=== PATIENT | male | born 1950 | race American Indian/Alaskan Native ===

== ENCOUNTER 2018-11-01 16:45 | Emergency (ER) | payer MEDICARE, MEDICAID ==
--- NOTE | 2018-11-01 17:00 | Emergency Department Report ---
ED General Adult HPI - General Chief complaint: Tube Replacement Stated complaint: PULLED OUT GTUBE Time Seen by Provider: 11/01/18 17:00 Source: patient, EMS Mode of arrival: Stretcher Limitations: Physical Limitation, Other - History of Present Illness Initial comments: Patient is a 68-year-old male with multiple medical comorbidities who presents from long-term for full G-tube. Patient pulled his G-tube earlier on today. Further history is limited due to patient being unable to speak. Severity scale (0 -10): 0 - Related Data Home Medications Medication Instructions Recorded Confirmed Last Taken Insulin Regular, Human 1 units SQ PRN PRN 06/21/15 06/21/15 06/20/15 Omeprazole 20 mg PO DAILY 06/21/15 06/21/15 06/20/15 Scopolamine 1.5 mg SUBDERMAL Q72HR 06/21/15 06/21/15 06/20/15 glipiZIDE [Glucotrol] 5 mg PO BIDDIAB 06/21/15 06/21/15 06/20/15 Previous Rx's Medication Instructions Recorded Last Taken Type Lansoprazole Solutab [Prevacid 30 mg FEEDTUBE QDAY #30 tab.rapdis 09/22/14 Unknown Rx Solutab] Simvastatin (Nf) [Zocor TAB] 20 mg PO QHS #30 tablet 09/22/14 Unknown Rx Aspirin [Aspirin TAB] 325 mg PO QDAY #30 tablet 10/10/14 Unknown Rx Allergies Allergy/AdvReac Type Severity Reaction Status Date / Time shellfish derived AdvReac Unknown Verified 09/10/14 16:32 ED Review of Systems ROS: Stated complaint: PULLED OUT GTUBE Other details as noted in HPI Comment: Unobtainable due to pts medical conditions ED Past Medical Hx - Past Medical History Hx Hypertension: Yes Hx CVA: Yes (X 2 01/2015 & 01/2014) Hx Diabetes: Yes Hx Seizures: Yes Hx Dementia: Yes Additional medical history: Unable to obtain all medical history - Surgical History Past Surgical History?: Yes Additional Surgical History: Abd Surgery - Social History Smoking Status: Unknown if ever smoked - Medications Home Medications: Home Medications Medication Instructions Recorded Confirmed Last Taken Type Lansoprazole Solutab [Prevacid 30 mg FEEDTUBE QDAY #30 tab.rapdis 09/22/14 06/21/15 Unknown Rx Solutab] Simvastatin (Nf) [Zocor TAB] 20 mg PO QHS #30 tablet 09/22/14 06/21/15 Unknown Rx Aspirin [Aspirin TAB] 325 mg PO QDAY #30 tablet 10/10/14 06/21/15 Unknown Rx Insulin Regular, Human 1 units SQ PRN PRN 06/21/15 06/21/15 06/20/15 History Omeprazole 20 mg PO DAILY 06/21/15 06/21/15 06/20/15 History Scopolamine 1.5 mg SUBDERMAL Q72HR 06/21/15 06/21/15 06/20/15 History glipiZIDE [Glucotrol] 5 mg PO BIDDIAB 06/21/15 06/21/15 06/20/15 History ED Physical Exam - General Limitations: Physical Limitation, Other General appearance: alert, in no apparent distress - Head Head exam: Present: atraumatic, normocephalic - Eye Eye exam: Present: normal appearance - ENT ENT exam: Present: mucous membranes moist - Neck Neck exam: Present: normal inspection - Respiratory Respiratory exam: Present: normal lung sounds bilaterally. Absent: respiratory distress - Cardiovascular Cardiovascular Exam: Present: regular rate, normal rhythm. Absent: systolic murmur, diastolic murmur, rubs, gallop - GI/Abdominal GI/Abdominal exam: Present: soft, normal bowel sounds, other (erythematous stoma ) - Rectal Rectal exam: Present: deferred - Extremities Exam Extremities exam: Present: normal inspection - Back Exam Back exam: Present: normal inspection - Neurological Exam Neurological exam: Present: alert, other (unable to speak) - Psychiatric Psychiatric exam: Present: other (unable to speak) - Skin Skin exam: Present: warm, dry, intact, normal color. Absent: rash ED Course Vital Signs 11/01/18 11/01/18 16:55 17:31 Temperature 98.7 F Pulse Rate 77 Respiratory 16 16 Rate Blood Pressure 107/70 [Right] O2 Sat by Pulse 98 Oximetry - Feeding Tube Replacement Reason for Replacement: pt. removed/pulled out Initial Tube Inserted: greater than 4 weeks Type of Tube: gastrostomy Use of Tube: medications and feeding Insertion Site Prior to Procedure: clean Tube Used for Reinsertion: other Armenian Tube Size (F): 22 Balloon Size (mls): 10 Verification of Placement: KUB Tube Secured by: G-tube attachment device Patient Tolerated Procedure: well ED Medical Decision Making - Radiology Data Radiology results: report reviewed, image reviewed Gastrotomy tube study: Shows gastrotomy tube tip in the stomach. - Medical Decision Making Cdx: pulled out g-tube ddx: stoma injury, malfunctioned g-tube I will replace g-tube and get radiologic imaging to confirm placement Critical care attestation.: If time is entered above; I have spent that time in minutes in the direct care of this critically ill patient, excluding procedure time. ED Disposition Clinical Impression: Gastrostomy tube dysfunction, Gastrojejunostomy tube dislodgement Disposition: - TO HOME OR SELFCARE Is pt being admited?: No Does the pt Need Aspirin: No Condition: Stable
--- NOTE | 2018-11-01 18:16 | XRay Report ---
FINAL REPORT EXAM: XR G-TUBE STUDY HISTORY: feeding tube placement TECHNIQUE: Supine AP views of the abdomen before and after injection of radiopaque contrast into a G -tube PRIORS: None. FINDINGS: The G-tube tip is in the mid stomach. After contrast injection the stomach and proximal to mid duoden um opacified. There is no contrast extravasation. The bowel gas pattern appears normal. There are dagoberto gical clips in the pelvis. There is advanced degenerative disc disease at L5-S1. IMPRESSION: The G-tube tip is in the stomach
[2018-11-01 19:18] VITALS: BP 107/71
== END 2018-11-01 20:13 | disposition home or self-care (01) ==
LOC: ED 16:45
DX: K94.23 Gastrostomy malfunction (principal); I10 Essential (primary) hypertension; E11.9 Type 2 diabetes mellitus without complications; Z79.4 Long term (current) use of insulin; Z91.013 Allergy to seafood
CPT/HCPCS: 43762; 74018; 99283; Q9963

== ENCOUNTER 2019-08-09 09:06 | Outpatient (CLI) | payer MEDICARE, MEDICAID ==
--- NOTE | 2019-08-09 11:55 | Fluoroscopy Report ---
MODIFIED BARIUM SWALLOW INDICATION: DYSPHAGIA TECHNIQUE: Swallowing was evaluated in the lateral position under direct fluoroscopy. FINDINGS: The patient was evaluated with thin liquids, puree and semisolid consistencies. The swallowing reflex was markedly delayed. There is poor clearing of the pharyngeal structures after swallowing. Vallecular and piriform sinus stasis was witnessed with thin liquids. No evidence for pe netration or aspiration. Please correlate with the formal report from speech therapy. IMPRESSION: Delayed swallowing reflex with poor clearing. Stasis. No penetration or aspiration was w itnessed. Fluoroscopic time: 2.6 minutes Number of fluoroscopic images: 1 Signer Name: Sergio Knott Jr, MD Signed: 08/09/2019 11:51 AM Workstation Name: [id number]
== END 2019-08-09 09:07 | disposition home or self-care (01) ==
LOC: PT 09:06
PROVIDERS: ATTEND Internal Medicine
DX: R13.10 Dysphagia, unspecified (principal); I10 Essential (primary) hypertension
CPT/HCPCS: 74230

== ENCOUNTER 2020-12-04 11:47 | Inpatient (IN) | payer MEDICARE ==
[2020-12-04] MEDS ORDERED: VANCOMYCIN/NS 1 GM/250 ML 1 GM/250 ML BAG IV ONE (14:06)
[2020-12-04] MEDS ORDERED: ACETAMINOPHEN 325 MG TAB PO PRN (14:10)
[2020-12-04] MEDS ORDERED: ONDANSETRON 4 MG/2 ML INJ IV PRN (14:10)
[2020-12-04] MEDS ORDERED: DEXTROSE 50% IN WATER (25GM) 50 ML SYRINGE IV PRN (14:15)
[2020-12-04] MEDS ORDERED: SCOPOLAMINE 1.5 MG SUBDERMAL SCH (14:15)
--- NOTE | 2020-12-04 14:15 | History and Physical Report ---
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 Patient is confused and is unable to provide detailed history. Patient history taken from EMS staff, ED staff as well as residential facility staff. As per staff the patient has experienced leaking from around his gastric tube site and is unable to receive feeding via his G-tube. EMS was notified and upon arrival the patient was found to have leaking from his G-tube. Patient transported to [facility] for further care and evaluation of the aforementioned symptoms. The patient was seen and evaluated in the emergency department. All lab and imaging studies reviewed. Patient found to have malfunctioning G-tube, complicated by abdominal wall cellulitis. Patient admitted to medical floor and initiated on IV antibiotic therapy. GI team consulted in ED. Patient is unable to provide history. Patient has positive gag reflex and is able to protect his airway without difficulty. Prior admission on 09/10/14 reviewed. All medication listed at time of admission has been reconciled. Advanced care planning conducted in ED. Past History Past Medical History: diabetes, stroke, other (See HPI) Past Surgical History: No surgical history, Other (Reviewed) Social history: single. denies: smoking, alcohol abuse, prescription drug abuse Family history: diabetes, hypertension Medications and Allergies Allergies Allergy/AdvReac Type Severity Reaction Status Date / Time shellfish derived AdvReac Unknown Verified 09/10/14 16:32 Home Medications Medication Instructions Recorded Confirmed Last Taken Type Lansoprazole Solutab [Prevacid 30 mg FEEDTUBE QDAY #30 tab.rapdis 09/22/14 06/21/15 Unknown Rx Solutab] Simvastatin (Nf) [Zocor TAB] 20 mg PO QHS #30 tablet 09/22/14 06/21/15 Unknown Rx Aspirin 325 mg PO QDAY #30 tablet 10/10/14 06/21/15 Unknown Rx Insulin Regular, Human 1 units SQ PRN PRN 06/21/15 06/21/15 06/20/15 History Omeprazole 20 mg PO DAILY 06/21/15 06/21/15 06/20/15 History Scopolamine 1.5 mg SUBDERMAL Q72HR 06/21/15 06/21/15 06/20/15 History glipiZIDE [Glucotrol] 5 mg PO BIDDIAB 06/21/15 06/21/15 06/20/15 History Active Meds: Active Medications Acetaminophen (Acetaminophen 325 Mg Tab) 650 mg PO Q4H PRN PRN Reason: Pain MILD(1-3)/Fever >100.5/HESTER Aspirin (Aspirin 325 Mg Tab) 325 mg PO QDAY DARLENE Vancomycin HCl (Vancomycin/Ns 1 Gm/250 Ml) 1 gm in 250 mls @ 167.007 mls/hr IV ONCE ONE; Protocol Stop: 12/04/20 15:35 Miscellaneous Medication (Omeprazole) 20 mg PO DAILY DARLENE Miscellaneous Medication (Scopolamine) 1.5 mg SUBDERMAL Q72HR DARLENE Miscellaneous Medication (Simvastatin) 20 mg PO QHS DARLENE Ondansetron HCl (Ondansetron 4 Mg/2 Ml Inj) 4 mg IV Q8H PRN PRN Reason: Nausea And Vomiting Sodium Chloride (Sodium Chloride 0.9% 10 Ml Flush Syringe) 10 ml IV BID DARLENE Sodium Chloride (Sodium Chloride 0.9% 10 Ml Flush Syringe) 10 ml IV PRN PRN PRN Reason: LINE FLUSH Review of Systems ROS unobtainable: due to mental status Exam - Constitutional General appearance: Present: mild distress - EENT Eyes: Present: PERRL ENT: hearing intact, clear oral mucosa - Neck Neck: Present: supple, normal ROM - Respiratory Respiratory effort: normal Respiratory: bilateral: CTA - Cardiovascular Heart Sounds: Present: S1 & S2. Absent: rub, click - Extremities Extremities: pulses symmetrical, No edema Peripheral Pulses: within normal limits - Abdominal General gastrointestinal: Present: soft, non-tender, non-distended, normal bowel sounds Male genitourinary: Present: normal - Integumentary Integumentary: Present: clear, warm, dry - Musculoskeletal Musculoskeletal: generalized weakness - Psychiatric Psychiatric: no appropriate mood/affect, no intact judgment & insight, no memory intact - Neurologic Neurologic: CNII-XII intact, moves all extremities Results - Labs CBC & Chem 7: 12/04/20 15:18 12/04/20 15:18 Assessment and Plan - Patient Problems (1) Abdominal wall cellulitis Current Visit: Yes Status: Acute Plan to address problem: CBC, CMP, IV antibiotic therapy, supportive care, wound care. (2) Gastrostomy tube dysfunction Current Visit: Yes Status: Acute Plan to address problem: Hold tube feeds for now, GI team consulted in ED. (3) Vascular dementia Current Visit: Yes Status: Acute Qualifiers: Dementia behavioral disturbance: without behavioral disturbance Qualified Code(s): F01.50 - Vascular dementia without behavioral disturbance Plan to address problem: Verbal prompting, verbal redirection, benzodiazepine therapy as clinically indicated. (4) Cerebral atherosclerosis Current Visit: Yes Status: Acute Plan to address problem: Risk factor reduction, supportive care, continue medical management (5) DVT prophylaxis Current Visit: No Status: Acute Plan to address problem: SCD to bilateral lower extremities while in bed, prophylactic anticoagulation (6) Advance care planning Current Visit: Yes Status: Acute Plan to address problem: Disease education conducted, patient is full code, care plan discussed, prognosis discussed, +30 minutes.
--- NOTE | 2020-12-04 14:15 | Emergency Department Report ---
ED General Adult HPI - General Chief complaint: Tube Replacement Stated complaint: CATH LEAKING Time Seen by Provider: 12/04/20 13:26 Source: EMS Mode of arrival: Stretcher Limitations: Other - History of Present Illness Initial comments: The patient presents to the emergency department from a local care home for an issue with his G-tube. Per EMS care home states that the patient is having leakage around the G-tube and is nonfunctional. The patient is aphasic and is not able to add to the history and physical. -: unknown Consistency: constant Improves with: none Worsens with: none Associated Symptoms: denies other symptoms Treatments Prior to Arrival: none - Related Data Home Medications Medication Instructions Recorded Confirmed Last Taken Insulin Regular, Human 1 units SQ PRN PRN 06/21/15 06/21/15 06/20/15 Omeprazole 20 mg PO DAILY 06/21/15 06/21/15 06/20/15 Scopolamine 1.5 mg SUBDERMAL Q72HR 06/21/15 06/21/15 06/20/15 glipiZIDE [Glucotrol] 5 mg PO BIDDIAB 06/21/15 06/21/15 06/20/15 Previous Rx's Medication Instructions Recorded Last Taken Type Lansoprazole Solutab [Prevacid 30 mg FEEDTUBE QDAY #30 tab.rapdis 09/22/14 Unknown Rx Solutab] Simvastatin (Nf) [Zocor TAB] 20 mg PO QHS #30 tablet 09/22/14 Unknown Rx Aspirin 325 mg PO QDAY #30 tablet 10/10/14 Unknown Rx Allergies Allergy/AdvReac Type Severity Reaction Status Date / Time shellfish derived AdvReac Unknown Verified 09/10/14 16:32 ED Review of Systems ROS: Stated complaint: CATH LEAKING Other details as noted in HPI Comment: aphasic ED Past Medical Hx - Past Medical History Hx Hypertension: Yes Hx CVA: Yes Hx Diabetes: No Hx Renal Disease: No Hx Arthritis: No Hx Seizures: No Hx Asthma: No Hx Dementia: Yes Additional medical history: Unable to obtain all medical history - Surgical History Hx Pacemaker: No Additional Surgical History: Abd Surgery - Social History Smoking Status: Unknown if ever smoked - Medications Home Medications: Home Medications Medication Instructions Recorded Confirmed Last Taken Type Lansoprazole Solutab [Prevacid 30 mg FEEDTUBE QDAY #30 tab.rapdis 09/22/14 06/21/15 Unknown Rx Solutab] Simvastatin (Nf) [Zocor TAB] 20 mg PO QHS #30 tablet 09/22/14 06/21/15 Unknown Rx Aspirin 325 mg PO QDAY #30 tablet 10/10/14 06/21/15 Unknown Rx Insulin Regular, Human 1 units SQ PRN PRN 06/21/15 06/21/15 06/20/15 History Omeprazole 20 mg PO DAILY 06/21/15 06/21/15 06/20/15 History Scopolamine 1.5 mg SUBDERMAL Q72HR 06/21/15 06/21/15 06/20/15 History glipiZIDE [Glucotrol] 5 mg PO BIDDIAB 06/21/15 06/21/15 06/20/15 History ED Physical Exam - General Limitations: Other General appearance: alert, in no apparent distress - Head Head exam: Present: atraumatic, normocephalic - Eye Eye exam: Present: normal appearance - ENT ENT exam: Present: mucous membranes moist - Neck Neck exam: Present: normal inspection - Respiratory Respiratory exam: Present: normal lung sounds bilaterally. Absent: respiratory distress - Cardiovascular Cardiovascular Exam: Present: regular rate, normal rhythm. Absent: systolic murmur, diastolic murmur, rubs, gallop - GI/Abdominal GI/Abdominal exam: Present: soft, tenderness (Patient has tenderness around the G-tube with obvious surrounding excoriation and soft tissue cellulitis), normal bowel sounds - Rectal Rectal exam: Present: deferred - Extremities Exam Extremities exam: Present: normal inspection - Back Exam Back exam: Present: normal inspection - Neurological Exam Neurological exam: Present: alert - Psychiatric Psychiatric exam: Present: normal affect, normal mood - Skin Skin exam: Present: warm, dry, intact, normal color. Absent: rash ED Medical Decision Making - Medical Decision Making IV Abx given Admitting physician will follow labs Critical care attestation.: If time is entered above; I have spent that time in minutes in the direct care of this critically ill patient, excluding procedure time. ED Disposition Clinical Impression: Gastrostomy tube dysfunction, Abdominal wall cellulitis Disposition: - TO HOME OR SELFCARE Is pt being admited?: Yes Does the pt Need Aspirin: No Condition: Fair Referrals: PRIMARY CARE,MD [Primary Care Provider] - 3-5 Days
[2020-12-04 15:49] LABS: Basophils % (Auto) 0.2 % (0.0-1.8); Eosinophils % (Auto) 0.3 % (0.0-4.3); Hematocrit 49.8 % (35.5-45.6); Hemoglobin 16.7 gm/dl (11.8-15.2); Lymphocytes # (Auto) 2.7 K/mm3 (1.2-5.4); Lymphocytes % (Auto) 27.9 % (13.4-35.0); Mean Corpuscular HGB Conc 34 % (32-34); Mean Corpuscular Volume 99 fl (84-94); Monocytes # (Auto) 0.8 K/mm3 (0.0-0.8); Monocytes % (Auto) 8.3 % (0.0-7.3); Platelet Count 133 K/mm3 (140-440); Red Blood Count 5.05 M/mm3 (3.65-5.03); Red Cell Distribution Width 14.5 % (13.2-15.2)
[2020-12-04 16:00] LABS: INR 1.05 (0.87-1.13)
[2020-12-04 16:01] LABS: Partial Thromboplastin Time 28.6 Sec. (24.2-36.6)
[2020-12-04 16:13] LABS: Alanine Aminotransferase 13 units/L (7-56); Albumin 4.1 g/dL (3.9-5); BUN/Creatinine Ratio 16; Blood Urea Nitrogen 13 mg/dL (9-20); Hemolysis Index 7
[2020-12-04] MEDS: INSULIN REGULAR, HUMAN 100 UNITS/1 ML SUB-Q SCH ×2 (17:00→23:37)
[2020-12-04] MEDS ORDERED: VANCOMYCIN PHARMACY TO DOSE IV SCH (18:00)
[2020-12-04] MEDS ORDERED: NON-FORMULARY EACH (Simvastatin 20 MG Tablet) PO SCH (21:00)
[2020-12-04] MEDS: PRAVASTATIN 40 MG TAB PO SCH (23:37)
[2020-12-04] MEDS ORDERED: SODIUM CHLORIDE 0.9% 1000 ML 1,000 ML IV SCH (23:45)
[2020-12-05] MEDS ORDERED: VANCOMYCIN/NS 1 GM/250 ML 1 GM/250 ML BAG IV SCH (02:00)
[2020-12-05] MEDS: INSULIN REGULAR, HUMAN 100 UNITS/1 ML SUB-Q SCH ×4 (05:32→21:37)
[2020-12-05] MEDS ORDERED: PANTOPRAZOLE 20 MG TAB PO SCH (08:00)
[2020-12-05] MEDS: ASPIRIN 325 MG TAB PO SCH (08:15)
[2020-12-05] MEDS ORDERED: NON-FORMULARY EACH (Omeprazole 20 MG) PO SCH (10:00)
--- NOTE | 2020-12-05 11:48 | Progress Note ---
Assessment and Plan Assessment and plan: abdominal wall cellulitis. Gastrostomy tube dysfunction Vascular dementia Cerebral atherosclerosis 12/05/2020. Await GI consultation for G-tube dysfunction. Continue IV antibiotics and follow-up cultures. Check CT scan of the abdomen to rule out abscess. ID consultation. History Interval history: No new issues overnight Hospitalist Physical - Constitutional Vitals: Temp Pulse Resp BP Pulse Ox 98.3 F 107 H 18 119/75 94 12/05/20 05:12 12/05/20 05:12 12/05/20 05:12 12/05/20 05:12 12/05/20 05:12 General appearance: Present: mild distress - EENT Eyes: Present: PERRL, EOM intact ENT: hearing intact, clear oral mucosa, dentition normal - Neck Neck: Present: supple, normal ROM - Respiratory Respiratory effort: normal Respiratory: bilateral: CTA - Cardiovascular Rhythm: regular Heart Sounds: Present: S1 & S2. Absent: gallop, rub - Extremities Extremities: no ischemia, No edema, Full ROM - Abdominal General gastrointestinal: soft, non-tender, non-distended, normal bowel sounds - Integumentary Integumentary: Present: clear, warm, dry - Neurologic Neurologic: CNII-XII intact, moves all extremities Results - Labs CBC & Chem 7: 12/04/20 15:18 12/04/20 15:18 Labs: Laboratory Last Values WBC 9.8 K/mm3 (4.5-11.0) 12/04/20 15:18 RBC 5.05 M/mm3 (3.65-5.03) H 12/04/20 15:18 Hgb 16.7 gm/dl (11.8-15.2) H 12/04/20 15:18 Hct 49.8 % (35.5-45.6) H 12/04/20 15:18 MCV 99 fl (84-94) H 12/04/20 15:18 MCH 33 pg (28-32) H 12/04/20 15:18 MCHC 34 % (32-34) 12/04/20 15:18 RDW 14.5 % (13.2-15.2) 12/04/20 15:18 Plt Count 133 K/mm3 (140-440) L 12/04/20 15:18 Lymph % (Auto) 27.9 % (13.4-35.0) 12/04/20 15:18 [place] % (Auto) 8.3 % (0.0-7.3) H 12/04/20 15:18 Eos % (Auto) 0.3 % (0.0-4.3) 12/04/20 15:18 Baso % (Auto) 0.2 % (0.0-1.8) 12/04/20 15:18 Lymph # (Auto) 2.7 K/mm3 (1.2-5.4) 12/04/20 15:18 [place] # (Auto) 0.8 K/mm3 (0.0-0.8) 12/04/20 15:18 Eos # (Auto) 0.0 K/mm3 (0.0-0.4) 12/04/20 15:18 Baso # (Auto) 0.0 K/mm3 (0.0-0.1) 12/04/20 15:18 Seg Neutrophils % 63.3 % (40.0-70.0) 12/04/20 15:18 Seg Neutrophils # 6.2 K/mm3 (1.8-7.7) 12/04/20 15:18 PT 13.6 Sec. (12.2-14.9) 12/04/20 15:18 INR 1.05 (0.87-1.13) 12/04/20 15:18 APTT 28.6 Sec. (24.2-36.6) 12/04/20 15:18 Sodium 145 mmol/L (137-145) 12/04/20 15:18 Potassium 4.5 mmol/L (3.6-5.0) 12/04/20 15:18 Chloride 100.4 mmol/L (98-107) 12/04/20 15:18 Carbon Dioxide 32 mmol/L (22-30) H 12/04/20 15:18 Anion Gap 17 mmol/L 12/04/20 15:18 BUN 13 mg/dL (9-20) 12/04/20 15:18 Creatinine 0.8 mg/dL (0.8-1.3) 12/04/20 15:18 Estimated GFR > 60 ml/min 12/04/20 15:18 BUN/Creatinine Ratio 16 % 12/04/20 15:18 Glucose 118 mg/dL (75-100) H 12/04/20 15:18 POC Glucose 115 mg/dL (70-105) H 12/05/20 08:41 Lactic Acid 1.80 mmol/L (0.7-2.0) 12/05/20 00:59 Calcium 11.0 mg/dL (8.4-10.2) H 12/04/20 15:18 Magnesium 2.00 mg/dL (1.7-2.3) 12/04/20 15:18 Total Bilirubin 0.80 mg/dL (0.1-1.2) 12/04/20 15:18 AST 23 units/L (5-40) 12/04/20 15:18 ALT 13 units/L (7-56) 12/04/20 15:18 Alkaline Phosphatase 123 units/L (35-129) 12/04/20 15:18 Total Protein 8.1 g/dL (6.3-8.2) 12/04/20 15:18 Albumin 4.1 g/dL (3.9-5) 12/04/20 15:18 Albumin/Globulin Ratio 1.0 % 12/04/20 15:18 Microbiology: Microbiology 12/04/20 15:24 Peripheral/Venous Blood Culture - Preliminary Culture in Progress 12/04/20 15:18 Peripheral/Venous Blood Culture - Preliminary Culture in Progress [place]/IV: Voiding Method Urinal Active Medications - Current Medications Current Medications: Generic Name Dose Route Start Last Admin Trade Name Freq PRN Reason Stop Dose Admin Acetaminophen 650 mg 12/04/20 14:10 Acetaminophen 325 Mg Tab PO Q4H PRN Pain MILD(1-3)/Fever >100.5/HESTER Aspirin 325 mg 12/05/20 08:00 12/05/20 08:15 Aspirin 325 Mg Tab PO Not Given QDAY DARLENE Dextrose 50 ml 12/04/20 14:15 Dextrose 50% In Water (25gm) 50 Ml Syringe IV Q30MIN PRN Hypoglycemia Protocol Sodium Chloride 1,000 mls @ 75 mls/hr 12/04/20 23:45 Nacl 0.9% 1000 Ml IV DIRECT DARLENE Vancomycin HCl 1 gm in 250 mls @ 166.667 mls/hr 12/05/20 18:00 Vancomycin/Ns 1 Gm/250 Ml IV Q12H [facility] Insulin Human Regular 0 units 12/04/20 15:00 12/05/20 10:57 Insulin Regular, Human 100 Units/1 Ml SUB-Q Not Given Q6H [facility] Protocol Ondansetron HCl 4 mg 12/04/20 14:10 Ondansetron 4 Mg/2 Ml Inj IV Q8H PRN Nausea And Vomiting Pantoprazole Sodium 20 mg 12/05/20 08:00 12/05/20 08:15 Pantoprazole 20 Mg Tab PO Not Given QDAY [facility] Pravastatin Sodium 40 mg 12/04/20 21:00 12/04/20 23:37 Pravastatin 40 Mg Tab PO Not Given QHS [facility] Scopolamine 1 each 12/07/20 10:00 Scopolamine Transdermal Patch 72 Hr TD Q3D DARLENE Sodium Chloride 10 ml 12/04/20 22:00 12/05/20 08:15 Sodium Chloride 0.9% 10 Ml Flush Syringe IV 10 ml BID DARLENE Administration Sodium Chloride 10 ml 12/04/20 14:10 Sodium Chloride 0.9% 10 Ml Flush Syringe IV PRN PRN LINE FLUSH Nutrition/Malnutrition Assess - Dietary Evaluation Nutrition/Malnutrition Findings: Nutrition Notes Start: 12/05/20 08:58 Freq: Status: Active Protocol: Document 12/05/20 08:59 AL (Rec: 12/05/20 09:11 AL [id number]) Co-Sign 12/05/20 08:59 LP Nutrition Notes Current Diagnosis Diabetes,Hypertension,Stroke Other Pertinent Diagnosis AMS, Cerebral atherosclerosis Current Diet NPO Labs/Tests Reviewed Pertinent Medications Reviewed Height 5 ft 9 in Weight 67 kg [place] Body Weight (kg) 72.72 BMI 21.8 Weight Status Appropriate Subjective/Other Information RN screen for hx difficulty chewing. Pt Gilberto score of 15 . Burn Absent Trauma Absent Difficulty In Chewing Current % PO Negligible Minimum of two criteria No physical signs of malnutrition #2 Nutrition Diagnosis Increased nutrient needs ( specify in comment below) Comments: Protein Etiology need for wound healing As Evidenced by Signs and Symptoms anterior abd wound #1 Nutrition Diagnosis Inadequate oral intake Etiology difficulty chewing As Evidenced by Signs and Symptoms pt has PEG placed Is patient on ventilator? No Is Patient Ambulatory and/or Out of Bed Yes REE-([facility]-ambulatory/OOB) [ 1846.494 [id number]] Calculation Used for Recommendations [facility] Additional Notes Protein: 83-100 g (1.25-1.5 g/ kg ABW) Fluid: 1 ml/kcal Nutrition Intervention Change Diet Order: TF Nutrition Support: Glucerna 1.2 at 65 ml/hr Flush 125 ml q4h Kcal 1,872 Protein (gm) 94 Fluid (mL) 1,255 Goal #1 Start TF when medically feasible Goal #2 Wound healing Anticipated Discharge Needs: Glucerna 1.2 at 65 ml/hr Flush 125 ml q4h Follow-Up By: 12/07/20 Additional Comments FU for TF consult
--- NOTE | 2020-12-05 13:30 | Consultation ---
History of Present Illness - Reason for Consult Consult date: 12/05/20 abdominal wall cellulitis Requesting physician: YEVGENIY OQUENDO - History of Present Illness The patient is a 70-year-old male with CVA, diabetes, vascular dementia, retirement resident was brought into the emergency room due to leakage around his gastric tube site. Upon evaluation in the ER, was noted to have cellulitis around the G-tube. Infectious diseases was consulted for additional evaluation. Patient is otherwise afebrile. Labs show no leukocytosis. Nonverbal, unable to provide history Review of Systems: Nonverbal, unable to provide history Past History Past Medical History: diabetes, stroke, other (See HPI) Past Surgical History: No surgical history, Other (Reviewed) Social history: single. denies: smoking, alcohol abuse, prescription drug abuse Family history: diabetes, hypertension Medications and Allergies Allergies Allergy/AdvReac Type Severity Reaction Status Date / Time shellfish derived AdvReac Unknown Verified 09/10/14 16:32 Home Medications Medication Instructions Recorded Confirmed Last Taken Type Lansoprazole Solutab [Prevacid 30 mg FEEDTUBE QDAY #30 tab.rapdis 09/22/14 06/21/15 Unknown Rx Solutab] Simvastatin (Nf) [Zocor TAB] 20 mg PO QHS #30 tablet 09/22/14 06/21/15 Unknown Rx Aspirin 325 mg PO QDAY #30 tablet 10/10/14 06/21/15 Unknown Rx Insulin Regular, Human 1 units SQ PRN PRN 06/21/15 06/21/15 06/20/15 History Omeprazole 20 mg PO DAILY 06/21/15 06/21/15 06/20/15 History Scopolamine 1.5 mg SUBDERMAL Q72HR 06/21/15 06/21/15 06/20/15 History glipiZIDE [Glucotrol] 5 mg PO BIDDIAB 06/21/15 06/21/15 06/20/15 History Active Meds: Active Medications Acetaminophen (Acetaminophen 325 Mg Tab) 650 mg PO Q4H PRN PRN Reason: Pain MILD(1-3)/Fever >100.5/HESTER Aspirin (Aspirin 325 Mg Tab) 325 mg PO QDAY [facility] Last Admin: 12/05/20 08:15 Dose: Not Given Documented by: Dextrose (Dextrose 50% In Water (25gm) 50 Ml Syringe) 50 ml IV Q30MIN PRN; Protocol PRN Reason: Hypoglycemia Sodium Chloride (Nacl 0.9% 1000 Ml) 1,000 mls @ 75 mls/hr IV DIRECT DARLENE Vancomycin HCl (Vancomycin/Ns 1 Gm/250 Ml) 1 gm in 250 mls @ 166.667 mls/hr IV Q12H [facility] Insulin Human Regular (Insulin Regular, Human 100 Units/1 Ml) 0 units SUB-Q Q6H [facility]; Protocol Last Admin: 12/05/20 10:57 Dose: Not Given Documented by: Ondansetron HCl (Ondansetron 4 Mg/2 Ml Inj) 4 mg IV Q8H PRN PRN Reason: Nausea And Vomiting Pantoprazole Sodium (Pantoprazole 20 Mg Tab) [address] [facility] Last Admin: 12/05/20 08:15 Dose: Not Given Documented by: Pravastatin Sodium (Pravastatin 40 Mg Tab) [address] [facility] Last Admin: 12/04/20 23:37 Dose: Not Given Documented by: Scopolamine (Scopolamine Transdermal Patch 72 Hr) [address] [facility] Sodium Chloride (Sodium Chloride 0.9% 10 Ml Flush Syringe) [address] [facility] Last Admin: 12/05/20 08:15 Dose: 10 ml Documented by: Sodium Chloride (Sodium Chloride 0.9% 10 Ml Flush Syringe) 10 ml IV PRN PRN PRN Reason: LINE FLUSH Physical Examination - Physical Exam Narrative exam: Physical Exam: Constitutional: Awake, nonverbal Head, Ears, Nose: Normocephalic, atraumatic. External ears, nose normal Eyes: Conjunctivae/corneas clear. No icterus. No ptosis. Neck: Supple, no meningeal signs Cardiovascular: S1, S2 normal. Respiratory: Good air entry, clear to auscultation bilaterally GI: Leakage from G-tube site, areas of maceration around it along with some cellulitis Musculoskeletal: No pedal edema, no cyanosis. Skin: No rash or abscess Hem/Lymphatic: No palpable cervical or supraclavicular nodes. No lymphangitis Psych: No agitation Neurological: Awake, nonverbal, exam limited - Constitutional Vitals: Vital Signs Temp Pulse Resp BP Pulse Ox 98.3 F 107 H 18 119/75 94 12/05/20 05:12 12/05/20 05:12 12/05/20 05:12 12/05/20 05:12 12/05/20 05:12 Temperature -Last 24 Hours Temperature 98.3 F Temperature 98.7 F Temperature 98.5 F Temperature 99.0 F Temperature 99.0 F Results - Labs CBC & Chem 7: 12/04/20 15:18 12/04/20 15:18 Labs: Abnormal lab results 12/04/20 12/04/20 12/04/20 Range/Units 15:18 15:18 15:18 RBC 5.05 H (3.65-5.03) M/mm3 Hgb 16.7 H (11.8-15.2) gm/dl Hct 49.8 H (35.5-45.6) % MCV 99 H (84-94) fl MCH 33 H (28-32) pg Plt Count 133 L (140-440) K/mm3 [place] % (Auto) 8.3 H (0.0-7.3) % Carbon Dioxide 32 H (22-30) mmol/L Glucose 118 H (75-100) mg/dL POC Glucose (70-105) mg/dL Lactic Acid 3.90 H* (0.7-2.0) mmol/L Calcium 11.0 H (8.4-10.2) mg/dL 12/04/20 12/05/20 12/05/20 Range/Units 16:58 05:13 08:41 RBC (3.65-5.03) M/mm3 Hgb (11.8-15.2) gm/dl Hct (35.5-45.6) % MCV (84-94) fl MCH (28-32) pg Plt Count (140-440) K/mm3 [place] % (Auto) (0.0-7.3) % Carbon Dioxide (22-30) mmol/L Glucose (75-100) mg/dL POC Glucose 109 H 107 H 115 H (70-105) mg/dL Lactic Acid (0.7-2.0) mmol/L Calcium (8.4-10.2) mg/dL Assessment and Plan Cultures: 12/04/2020 blood culture: In process A/P: 70-year-old male with CVA, diabetes, vascular dementia, retirement resident was brought into the emergency room due to leakage around his gastric tube site: #Abdominal wall cellulitis due to G-tube malfunction #Vascular dementia, G-tube dependent Recs: -Awaiting GI evaluation for G-tube dysfunction -Mainly seems like chemical cellulitis from gastric secretions. Needs wound care -Short course of empiric ceftriaxone, vancomycin and fluconazole x 3 days Riley Anaya MD, FACP [facility] O: [phone] F: [phone]
--- NOTE | 2020-12-05 13:53 | Cat Scan Report ---
CT ABDOMEN AND PELVIS WITHOUT IV CONTRAST INDICATION: PEG site infection/cellulitis. COMPARISON: None available. TECHNIQUE: All CT scans at this facility use dose modulation, automated exposure control, iterative reconstructi on or weight based dosing, when appropriate, to reduce radiation dose to as low as reasonably achieva ble. FINDINGS: Lung Bases: Lung bases are clear. There appears to be a 2.6 cm left ventricular aneurysm at the apex (axial series 2 image 39). Skeletal System: No acute abnormality. Chronic mild T12 and T7 compression deformities are noted. Th ere is advanced discogenic degenerative change at the lumbosacral junction. ABDOMEN: Liver: No significant abnormality. Gallbladder: No significant abnormality. Bile Ducts: No significant abnormality. Pancreas: No significant abnormality. Spleen: Removed. Adrenals: No significant abnormality. Right Kidney: There is a punctate nonobstructing calyceal stone. Exophytic upper pole cyst is noted. No acute finding. Left Kidney: No significant abnormality. Upper GI tract: Gastrostomy is in satisfactory position. There is mild stranding and skin thickening in the anterior abdominal wall adjacent to the gastrostomy tract. No soft tissue fluid collections. Lymph Nodes: No significant adenopathy. Aorta: No significant abnormality. Additional Findings: In addition to midline rectus diastases of the umbilicus, there is a very small umbilical hernia which contains a single loop of small bowel (sagittal image 79). PELVIS: Colon: No acute abnormality. Sigmoid anastomosis is noted. Urinary Bladder and Distal Ureters: No significant abnormality. Appendix: No significant abnormality. Lymph Nodes: No significant adenopathy. Additional Findings: None. IMPRESSION: 1. There is mild stranding subcutaneous fat adjacent to the percutaneous gastrostomy catheter which could be seen in the setting of cellulitis; no abscess, free fluid, or free air. 2. 2.6 cm left ventricular aneurysm. Could be better characterized with echocardiography. 3. Additional incidental findings as above. Signer Name: Gilson Mcclure MD Signed: 12/05/2020 1:48 PM Workstation Name: [id number]
[2020-12-05] MEDS: FLUCONAZOLE 200 MG 200 MG/100 ML BAG IV SCH (14:18)
[2020-12-05] MEDS: cefTRIAXone/NS 1 GM/50 ML 1 GM/50 ML BAG IV SCH (14:18)
[2020-12-05] MEDS: PANTOPRAZOLE 40 MG INJ IV SCH (14:52)
--- NOTE | 2020-12-05 15:33 | Consultation ---
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 He has been seen by our practice on a prior admission in 2013, no OP follow-up. He is nonverbal, unable to provide HPI, and thus HPI is obtained per the chart. Pt was brought into the emergency room due to leakage around his gastric tube site and subsequently found to have cellulitis around the tube. Pt was noted to have 5 beat run NSVT this morning and thus cardiology has been consulted. tte done at [facility] in 09/2014 showed EF 15-20%, mild MR, impaired relaxation. Past History Past Medical History: diabetes, stroke, other (See HPI) Past Surgical History: No surgical history, Other (Reviewed) Social history: single. denies: smoking, alcohol abuse, prescription drug abuse Family history: diabetes, hypertension Medications and Allergies Allergies Allergy/AdvReac Type Severity Reaction Status Date / Time shellfish derived AdvReac Unknown Verified 09/10/14 16:32 Home Medications Medication Instructions Recorded Confirmed Last Taken Type Lansoprazole Solutab [Prevacid 30 mg FEEDTUBE QDAY #30 tab.rapdis 09/22/14 06/21/15 Unknown Rx Solutab] Simvastatin (Nf) [Zocor TAB] 20 mg PO QHS #30 tablet 09/22/14 06/21/15 Unknown Rx Aspirin 325 mg PO QDAY #30 tablet 10/10/14 06/21/15 Unknown Rx Insulin Regular, Human 1 units SQ PRN PRN 06/21/15 06/21/15 06/20/15 History Omeprazole 20 mg PO DAILY 06/21/15 06/21/15 06/20/15 History Scopolamine 1.5 mg SUBDERMAL Q72HR 06/21/15 06/21/15 06/20/15 History glipiZIDE [Glucotrol] 5 mg PO BIDDIAB 06/21/15 06/21/15 06/20/15 History Active Meds: Active Medications Acetaminophen (Acetaminophen 325 Mg Tab) 650 mg PO Q4H PRN PRN Reason: Pain MILD(1-3)/Fever >100.5/[facility] Aspirin (Aspirin 325 Mg Tab) 325 mg PO QDAY [facility] Last Admin: 12/05/20 08:15 Dose: Not Given Documented by: Dextrose (Dextrose 50% In Water (25gm) 50 Ml Syringe) 50 ml IV Q30MIN PRN; Protocol PRN Reason: Hypoglycemia Sodium Chloride (Nacl 0.9% 1000 Ml) 1,000 mls @ 75 mls/hr IV DIRECT D[facility]LENE Vancomycin HCl (Vancomycin/Ns 1 Gm/250 Ml) 1 gm in 250 mls @ 166.667 mls/hr IV Q12H [facility] Ceftriaxone Sodium (Rocephin/Ns 1 Gm/50 Ml) 1 gm in 50 mls @ 100 mls/hr IV Q24HR [facility]; Protocol Last Admin: 12/05/20 14:18 Dose: 100 mls/hr Documented by: Fluconazole (Diflucan) 200 mg in 100 mls @ 100 mls/hr IV Q24HR [facility]; Protocol Last Admin: 12/05/20 14:18 Dose: 100 mls/hr Documented by: Insulin Human Regular (Insulin Regular, Human 100 Units/1 Ml) 0 units SUB-Q Q6H [facility]; Protocol Last Admin: 12/05/20 10:57 Dose: Not Given Documented by: Ondansetron HCl (Ondansetron 4 Mg/2 Ml Inj) 4 mg IV Q8H PRN PRN Reason: Nausea And Vomiting Pantoprazole Sodium (Pantoprazole 40 Mg Inj) 40 mg IV QDAY [facility] Last Admin: 12/05/20 14:52 Dose: 40 mg Documented by: Pravastatin Sodium (Pravastatin 40 Mg Tab) 40 mg PO QHS [facility] Last Admin: 12/04/20 23:37 Dose: Not Given Documented by: Scopolamine (Scopolamine Transdermal Patch 72 Hr) 1 each TD Q3D [facility] Sodium Chloride (Sodium Chloride 0.9% 10 Ml Flush Syringe) 10 ml IV BID [facility] Last Admin: 12/05/20 08:15 Dose: 10 ml Documented by: Sodium Chloride (Sodium Chloride 0.9% 10 Ml Flush Syringe) 10 ml IV PRN PRN PRN Reason: LINE FLUSH Review of Systems ROS unobtainable: due to mental status Physical Examination Vital Signs Resp 17 12/04/20 15:26 General appearance: other (nonverbal) Cardiac: Positive: Reg Rate and Rhythm, S1/S2 Lungs: Positive: Decreased Breath Sounds Neuro: Positive: Other (nonverbal) Results 12/04/20 15:18 12/04/20 15:18 Cardiac Enzymes 12/04/20 Range/Units 15:18 AST 23 (5-40) units/L Coagulation 12/04/20 Range/Units 15:18 PT 13.6 (12.2-14.9) Sec. INR 1.05 (0.87-1.13) APTT 28.6 (24.2-36.6) Sec. CBC 12/04/20 Range/Units 15:18 WBC 9.8 (4.5-11.0) K/mm3 RBC 5.05 H (3.65-5.03) M/mm3 Hgb 16.7 H (11.8-15.2) gm/dl Hct 49.8 H (35.5-45.6) % Plt Count 133 L (140-440) K/mm3 Lymph # (Auto) 2.7 (1.2-5.4) K/mm3 [place] # (Auto) 0.8 (0.0-0.8) K/mm3 Eos # (Auto) 0.0 (0.0-0.4) K/mm3 Baso # (Auto) 0.0 (0.0-0.1) K/mm3 Comprehensive Metabolic Panel 12/04/20 Range/Units 15:18 Sodium 145 (137-145) mmol/L Potassium 4.5 (3.6-5.0) mmol/L Chloride 100.4 (98-107) mmol/L Carbon Dioxide 32 H (22-30) mmol/L BUN 13 (9-20) mg/dL Creatinine 0.8 (0.8-1.3) mg/dL Glucose 118 H (75-100) mg/dL Calcium 11.0 H (8.4-10.2) mg/dL AST 23 (5-40) units/L ALT 13 (7-56) units/L Alkaline Phosphatase 123 (35-129) units/L Total Protein 8.1 (6.3-8.2) g/dL Albumin 4.1 (3.9-5) g/dL - Imaging and Cardiology Echo: pending, report reviewed (09/2014 showed EF 15-20%, mild MR, impaired relaxation. ) EKG: pending EKG interpretations - Telemetry EKG Rhythm: Sinus Rhythm Assessment and Plan Pt is nonverbal group home resident admitted for eval/management of cellulitis around G-tube. He was noted to have 5 beat run NSVT this morning and thus cardiology has been consulted. tte done at [facility] in 09/2014 showed EF 15-20%, mi ld MR, impaired relaxation. Initiate lopressor. Obtain ECG and f/u tte. Cont to monitor on telemetry. Will likely continue with conservative cardiac management given dementia , chronic debility and multiple co-morbidities. Will follow. The patient has been seen in conjunction with Dr. Szymanski who agrees with the assessment and plan of care. - Patient Problems (1) Abdominal wall cellulitis Current Visit: Yes Status: Acute (2) Gastrostomy tube dysfunction Current Visit: Yes Status: Acute (3) NSVT (nonsustained ventricular tachycardia) Current Visit: Yes Status: Acute (4) Cardiomyopathy Current Visit: Yes Status: Chronic (5) Vascular dementia Current Visit: Yes Status: Chronic Qualifiers: Dementia behavioral disturbance: without behavioral disturbance Qualified Code(s): F01.50 - Vascular dementia without behavioral disturbance (6) HTN (hypertension), benign Current Visit: Yes Status: Chronic (7) Diabetes Current Visit: Yes Status: Chronic (8) History of CVA (cerebrovascular accident) Current Visit: Yes Status: Chronic
[2020-12-05] MEDS ORDERED: metFORMIN 850 MG TAB PO SCH (17:00)
[2020-12-05] MEDS: VANCOMYCIN/NS 1 GM/250 ML 1 GM/250 ML BAG IV SCH (18:17)
[2020-12-05] MEDS: METOPROLOL TARTRATE 25 MG TAB PO SCH (21:33)
[2020-12-05] MEDS: PRAVASTATIN 40 MG TAB PO SCH (21:37)
[2020-12-05] MEDS ORDERED: ALPRAZolam 0.5 MG TAB PO ONE (22:30)
--- NOTE | 2020-12-06 04:41 | Operative Report ---
PROCEDURE: PEG tube change. INDICATION: 1. Malfunctioning PEG tube. 2. Cellulitis. MEDICATIONS: None. COMPLICATIONS: None. DESCRIPTION OF PROCEDURE: The patient had procedure done at bedside. The patient had the procedure discussed with family after which consent to move along was given. The patient was done in supine position. No medications were administered. No complications noted. FINDINGS: There was a dilapidated PEG tube that was for the most part not functioning; needed to be removed. Bumper was very dilapidated. With mild to moderate pressure the PEG tube was moved with the bumper noted. Area was then cleaned and sterilized with Betadine. Using standard technique an 18-Tajik balloon replacement PEG was then placed. Bumper was noted to be at 2.5 cm. Post-procedure appearance was satisfactory. No complications noted. IMPRESSION: 1. Old PEG noted and removed. 2. Area clean. 3. New 18-Tajik replacement PEG placed. RECOMMENDATIONS: 1. Continue current antibiotics. 2. Do not use PEG for 6 hours. 3. Nutrition consult. 4. We will follow up in a.m. JOB# [id number] CAB/NTS
--- NOTE | 2020-12-06 05:09 | Consultation ---
INDICATION: PEG tube malfunction. REFERRING PHYSICIAN: Ronny Torres MD HISTORY OF PRESENT ILLNESS: The patient is a 70-year-old male status post CVA with dysarthria and vascular dementia as well as diabetes. The patient is confused, unable to give full history. The patient was sent from the nursing facility with G-tube malfunction with the G-tube leaking with noted pustular drainage. The patient reportedly with no fevers or chills. The patient does vaguely report some abdominal pain by pointing. He denies any bowel changes including diarrhea, constipation or rectal bleeding. The patient subsequently was seen in the Emergency Room, admitted and GI consulted. No other specific complaints. PAST MEDICAL HISTORY: TPN with diabetes. MEDICATIONS: Reviewed and updated in chart. ALLERGIES: No known drug allergies. SOCIAL HISTORY: No history of alcohol abuse or smoking. Lives in a mcc. FAMILY HISTORY: Negative for colon cancer. REVIEW OF SYSTEMS: GENERAL: Some weakness. HEENT: No visual complaints or tinnitus. PULMONARY: Denies shortness of breath. No cough. No chest pain. GASTROINTESTINAL: Reports some abdominal discomfort at the G-tube site. All points of 13-point review of systems otherwise negative. PHYSICAL EXAMINATION: VITAL SIGNS: Temperature of 98.1, pulse 90, respirations 16, blood pressure 117/60. GENERAL: Somewhat nourished with no acute distress. HEENT: Pupils equal, round, and reactive. PULMONARY: Clear to auscultation bilaterally. CARDIOVASCULAR: Regular rhythm. Normal S1, S2. ABDOMEN: Palpable soft. Noted inflammation, mild pain from old PEG tube and PEG tube site. SKIN: No obvious rashes. LABORATORY DATA: Pertinent for a white count of 9.8, hemoglobin and hematocrit of 16.7 and 49.8, platelet count of 133. Chem-[address] scan of the abdomen and pelvis with contrast performed on 12/05/2020 shows subcutaneous fat stranding around G-tube site, cellulitis, otherwise negative. ASSESSMENT: A 70-year-old male status post CVA and diabetes, now presents with a malfunctioning G-tube with drainage and signs of cellulitis. PEG tube would need to be removed and replaced but we will go for IV antibiotics overnight to stabilize better and perform in the morning. PLAN: 1. On IV antibiotics per primary team. 2. N.p.o. 3. Avoid NSAIDs and aspirin. 4. Plan PEG tube change in the a.m. JOB# [id number] CAB/NTS
[2020-12-06] MEDS: INSULIN REGULAR, HUMAN 100 UNITS/1 ML SUB-Q SCH ×4 (05:16→22:33)
[2020-12-06] MEDS: VANCOMYCIN/NS 1 GM/250 ML 1 GM/250 ML BAG IV SCH ×2 (05:26→17:52)
[2020-12-06 06:00] LABS: Basophils % (Auto) 0.3 % (0.0-1.8); Eosinophils # (Auto) 0.1 K/mm3 (0.0-0.4); Eosinophils % (Auto) 0.7 % (0.0-4.3); Hematocrit 41.4 % (35.5-45.6); Hemoglobin 13.8 gm/dl (11.8-15.2); Lymphocytes # (Auto) 2.8 K/mm3 (1.2-5.4); Lymphocytes % (Auto) 28.3 % (13.4-35.0); Mean Corpuscular HGB Conc 33 % (32-34); Mean Corpuscular Volume 99 fl (84-94); Monocytes # (Auto) 1.3 K/mm3 (0.0-0.8); Monocytes % (Auto) 13.2 % (0.0-7.3); Platelet Count 114 K/mm3 (140-440); Red Blood Count 4.17 M/mm3 (3.65-5.03); Red Cell Distribution Width 14.6 % (13.2-15.2)
[2020-12-06 06:21] LABS: Blood Urea Nitrogen 10 mg/dL (9-20); Calcium 9.7 mg/dL (8.4-10.2); Hemolysis Index 4
[2020-12-06 06:22] LABS: BUN/Creatinine Ratio 14
[2020-12-06] MEDS: PANTOPRAZOLE 40 MG INJ IV SCH (10:00)
[2020-12-06] MEDS: FLUCONAZOLE 200 MG 200 MG/100 ML BAG IV SCH (10:00)
[2020-12-06] MEDS: METOPROLOL TARTRATE 25 MG TAB PO SCH ×2 (10:00→21:37)
[2020-12-06] MEDS ORDERED: D5W/0.45% NACL 1,000 ML IV SCH (10:00)
[2020-12-06] MEDS: cefTRIAXone/NS 1 GM/50 ML 1 GM/50 ML BAG IV SCH (10:01)
[2020-12-06] MEDS: ASPIRIN 325 MG TAB PO SCH (10:02)
--- NOTE | 2020-12-06 12:34 | Progress Note ---
Assessment and Plan tte reviewed - EF 30-35%, LV borderline dilated, LV apical thrombus present which appears c/w chronic thrombus, moderate to severe apical hypokinesis, mild hypokinesis of inferior wall. In setting of apparent chronic LV apical thrombus, initiate coumadin with tx INR 2-3 and recommend continuation of coumadin for 3 months. Plan to f/u tte in 3 months as OP. tele reviewed - in SR HR 60s, one 3 and 4 beat run NSVT noted overnight. Cont lopressor. Initiate ACEI in setting of CMP. No current clinical evidence of acutely decompensated HF. Continue with conservative cardiac management given dementia , chronic debility and multiple co-morbidities. Will follow on as needed basis. Recommend pt follow up in our office with Dr. Szymanski within 2 weeks of discharge ([phone]). The patient has been seen in conjunction with Dr. Szymanski who agrees with the assessment and plan of care. - Patient Problems (1) Abdominal wall cellulitis Current Visit: Yes Status: Acute (2) Gastrostomy tube dysfunction Current Visit: Yes Status: Acute (3) NSVT (nonsustained ventricular tachycardia) Current Visit: Yes Status: Acute (4) Cardiomyopathy Current Visit: Yes Status: Chronic (5) Vascular dementia Current Visit: Yes Status: Chronic Qualifiers: Dementia behavioral disturbance: without behavioral disturbance Qualified Code(s): F01.50 - Vascular dementia without behavioral disturbance (6) HTN (hypertension), benign Current Visit: Yes Status: Chronic (7) Diabetes Current Visit: Yes Status: Chronic (8) History of CVA (cerebrovascular accident) Current Visit: Yes Status: Chronic (9) Left ventricular apical thrombus Current Visit: Yes Status: Chronic Subjective Date of service: 12/06/20 Principal diagnosis: NSVT Interval history: pt resting in bed, nonverbal, withdrawn, no apparent distress. tele reviewed - in SR HR 60s, one 3 and 4 beat run NSVT noted overnight. Objective Last Vital Signs Temp 97.9 F 12/06/20 08:04 Pulse 71 12/06/20 10:00 Resp 18 12/06/20 08:04 BP 113/69 12/06/20 10:00 Pulse Ox 95 12/06/20 08:04 - Physical Examination General: Other (withdrawn, lethargic ) Neck: Positive: neck supple, trachea midline Cardiac: Positive: Reg Rate and Rhythm, S1/S2 Lungs: Positive: Decreased Breath Sounds Neuro: Positive: Other (nonverbal) - Labs and Meds CBC 12/06/20 Range/Units 05:15 WBC 10.0 (4.5-11.0) K/mm3 RBC 4.17 (3.65-5.03) M/mm3 Hgb 13.8 (11.8-15.2) gm/dl Hct 41.4 D (35.5-45.6) % Plt Count 114 L (140-440) K/mm3 Lymph # (Auto) 2.8 (1.2-5.4) K/mm3 [place] # (Auto) 1.3 H (0.0-0.8) K/mm3 Eos # (Auto) 0.1 (0.0-0.4) K/mm3 Baso # (Auto) 0.0 (0.0-0.1) K/mm3 Comprehensive Metabolic Panel 12/06/20 Range/Units 05:15 Sodium 148 H (137-145) mmol/L Potassium 3.9 (3.6-5.0) mmol/L Chloride 109.6 H (98-107) mmol/L Carbon Dioxide 32 H (22-30) mmol/L BUN 10 (9-20) mg/dL Creatinine 0.7 L (0.8-1.3) mg/dL Glucose 90 (75-100) mg/dL Calcium 9.7 (8.4-10.2) mg/dL - Imaging and Cardiology EKG: report reviewed, image reviewed Echo: report reviewed (09/2014 showed EF 15-20%, mild MR, impaired relaxation. ) - Telemetry EKG Rhythm: Sinus Rhythm
[2020-12-06] MEDS ORDERED: LIPASE 10,500/PROTEASE 25,000/AMYLASE 43,750 (UNITS) DR CAP FEEDTUBE PRN (13:19)
[2020-12-06] MEDS ORDERED: SIMPLE SYRUP 15 ML FEEDTUBE PRN ×2 (13:19)
[2020-12-06] MEDS ORDERED: SODIUM BICARBONATE 325 MG TAB FEEDTUBE PRN (13:19)
--- NOTE | 2020-12-06 14:07 | Progress Note ---
Assessment and Plan Cultures: 12/04/2020 blood culture: no growth A/P: 70-year-old male with CVA, diabetes, vascular dementia, fdc resident was brought into the emergency room due to leakage around his gastric tube site: #Abdominal wall cellulitis due to G-tube malfunction: got new G tube. Mainly seems like chemical cellulitis from gastric secretions. Needs wound care and keep the area dry #Vascular dementia, G-tube dependent Recs: -stop abx tomorrow -wound care of skin around G tube, keep the area dry Will sign off. Please call with questions. Riley Anaya MD, FACP [facility] O: [phone] F: [phone] Subjective Date of service: 12/06/20 Principal diagnosis: NSVT Interval history: No fever. G tube replaced by GI. Non verbal. Objective - Exam Narrative Exam: Physical Exam: Constitutional: Awake, nonverbal Head, Ears, Nose: Normocephalic, atraumatic. External ears, nose normal Eyes: Conjunctivae/corneas clear. No icterus. No ptosis. Neck: Supple, no meningeal signs Cardiovascular: S1, S2 normal. Respiratory: Good air entry, clear to auscultation bilaterally GI: non tender, bowel sounds +, G tube +, improving skin around it Musculoskeletal: No pedal edema, no cyanosis. Skin: No rash or abscess Hem/Lymphatic: No palpable cervical or supraclavicular nodes. No lymphangitis Psych: No agitation Neurological: Awake, nonverbal, exam limited - Constitutional Vitals: Vital Signs Temp Pulse Resp BP Pulse Ox 98 F 72 18 114/70 97 12/06/20 11:45 12/06/20 11:45 12/06/20 11:45 12/06/20 11:45 12/06/20 11:45 Temperature -Last 24 Hours Temperature 98 F Temperature 97.9 F Temperature 97.5 F Temperature 98.1 F Temperature 99.3 F Temperature 98.1 F - Labs CBC & Chem 7: 12/06/20 05:15 12/06/20 05:15 Labs: Abnormal lab results 12/05/20 12/05/20 12/06/20 Range/Units 16:20 22:41 05:15 MCV (84-94) fl MCH (28-32) pg Plt Count (140-440) K/mm3 [place] % (Auto) (0.0-7.3) % [place] # (Auto) (0.0-0.8) K/mm3 Sodium 148 H (137-145) mmol/L Chloride 109.6 H (98-107) mmol/L Carbon Dioxide 32 H (22-30) mmol/L Creatinine 0.7 L (0.8-1.3) mg/dL POC Glucose 120 H 114 H (70-105) mg/dL 12/06/20 12/06/20 12/06/20 Range/Units 05:15 11:22 12:31 MCV 99 H (84-94) fl MCH 33 H (28-32) pg Plt Count 114 L (140-440) K/mm3 [place] % (Auto) 13.2 H (0.0-7.3) % [place] # (Auto) 1.3 H (0.0-0.8) K/mm3 Sodium (137-145) mmol/L Chloride (98-107) mmol/L Carbon Dioxide (22-30) mmol/L Creatinine (0.8-1.3) mg/dL POC Glucose 57 L 109 H (70-105) mg/dL
[2020-12-06 14:31] LABS: INR 1.14 (0.87-1.13)
--- NOTE | 2020-12-06 16:25 | Gastroenterology Progress Note ---
Assessment and Plan GI: s/p peg change w/o complication - continue to dress area and keep clean - antibiotics per ID - ok to dc from GI standpoint when stable - will sign off, call if needed Subjective Date of service: 12/06/20 Principal diagnosis: NSVT Interval history: - no specific GI complaints overnight Objective - Constitutional Vitals: Temp Pulse Resp BP Pulse Ox 98 F 72 18 114/70 97 12/06/20 11:45 12/06/20 11:45 12/06/20 11:45 12/06/20 11:45 12/06/20 11:45 General appearance: no acute distress - EENT Eyes: PERRL - Respiratory Respiratory: bilateral: CTA - Cardiovascular Rhythm: regular Heart Sounds: Present: S1 & S2 - Gastrointestinal General gastrointestinal: Present: soft, non-tender, non-distended - Labs CBC & Chem 7: 12/06/20 05:15 12/06/20 05:15 Labs: Laboratory Results - last 24 hr 12/05/20 12/05/20 12/06/20 16:20 22:41 05:15 WBC RBC Hgb Hct MCV MCH MCHC RDW Plt Count Lymph % (Auto) [place] % (Auto) Eos % (Auto) Baso % (Auto) Lymph # (Auto) [place] # (Auto) Eos # (Auto) Baso # (Auto) Seg Neutrophils % Seg Neutrophils # PT INR Sodium 148 H Potassium 3.9 Chloride 109.6 H Carbon Dioxide 32 H Anion Gap 10 BUN 10 Creatinine 0.7 L Estimated GFR > 60 BUN/Creatinine Ratio 14 Glucose 90 POC Glucose 120 H 114 H Calcium 9.7 Coronavirus (PCR) 12/06/20 12/06/20 12/06/20 05:15 08:04 11:22 WBC 10.0 RBC 4.17 Hgb 13.8 Hct 41.4 D MCV 99 H MCH 33 H MCHC 33 RDW 14.6 Plt Count 114 L Lymph % (Auto) 28.3 [place] % (Auto) 13.2 H Eos % (Auto) 0.7 Baso % (Auto) 0.3 Lymph # (Auto) 2.8 [place] # (Auto) 1.3 H Eos # (Auto) 0.1 Baso # (Auto) 0.0 Seg Neutrophils % 57.5 Seg Neutrophils # 5.8 PT INR Sodium Potassium Chloride Carbon Dioxide Anion Gap BUN Creatinine Estimated GFR BUN/Creatinine Ratio Glucose POC Glucose 73 57 L Calcium Coronavirus (PCR) 12/06/20 12/06/20 12/06/20 12:31 13:43 Unknown WBC RBC Hgb Hct MCV MCH MCHC RDW Plt Count Lymph % (Auto) [place] % (Auto) Eos % (Auto) Baso % (Auto) Lymph # (Auto) [place] # (Auto) Eos # (Auto) Baso # (Auto) Seg Neutrophils % Seg Neutrophils # PT 14.4 INR 1.14 H Sodium Potassium Chloride Carbon Dioxide Anion Gap BUN Creatinine Estimated GFR BUN/Creatinine Ratio Glucose POC Glucose 109 H Calcium Coronavirus (PCR) Negative
--- NOTE | 2020-12-06 16:49 | Progress Note ---
Assessment and Plan --Abdominal wall cellulitis. 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 Await GI consultation for G-tube dysfunction. Continue IV antibiotics and follow-up cultures. Check CT scan of the abdomen to rule out abscess. ID consultation. 12/06/20: s/p new PEG tube placed yesterday. start hypotonic fluid for hypernatremia. follow BMP, cont abx Subjective Date of service: 12/06/20 Principal diagnosis: NSVT Interval history: Patient seen and examined. Medical records and medication list reviewed. No acute event overnight noted by the RN. Patient denies any chest pain or difficulty breathing. Patient is tolerating tube feeding diet. Discussed plan of care at bedside with patient's RN. Objective - Exam Narrative Exam: General appearance: Present: mild distress - EENT Eyes: Present: PERRL, EOM intact ENT: hearing intact, clear oral mucosa, dentition normal - Neck Neck: Present: supple, normal ROM - Respiratory Respiratory effort: normal Respiratory: bilateral: CTA - Cardiovascular Rhythm: regular Heart Sounds: Present: S1 & S2. Absent: gallop, rub - Extremities Extremities: no ischemia, No edema, Full ROM - Abdominal General gastrointestinal: soft, non-tender, non-distended, normal bowel sounds - Integumentary Integumentary: Present: clear, warm, dry - Neurologic Neurologic: CNII-XII intact, - Constitutional Vitals: Vital Signs - 12hr 12/06/20 12/06/20 12/06/20 05:25 08:04 10:00 Temperature 97.5 F L 97.9 F Pulse Rate 73 71 71 Respiratory 18 18 Rate Blood Pressure 106/62 113/69 113/69 Blood Pressure [Left] O2 Sat by Pulse 95 95 Oximetry 12/06/20 12/06/20 10:40 11:45 Temperature 98 F Pulse Rate 72 Respiratory 18 Rate Blood Pressure Blood Pressure 114/70 [Left] O2 Sat by Pulse 98 97 Oximetry - Labs CBC & Chem 7: 12/06/20 05:15 12/07/20 05:15 Labs: Abnormal lab results 12/05/20 12/06/20 12/06/20 Range/Units 22:41 05:15 05:15 MCV 99 H (84-94) fl MCH 33 H (28-32) pg Plt Count 114 L (140-440) K/mm3 [place] % (Auto) 13.2 H (0.0-7.3) % [place] # (Auto) 1.3 H (0.0-0.8) K/mm3 INR (0.87-1.13) Sodium 148 H (137-145) mmol/L Chloride 109.6 H (98-107) mmol/L Carbon Dioxide 32 H (22-30) mmol/L Creatinine 0.7 L (0.8-1.3) mg/dL POC Glucose 114 H (70-105) mg/dL 12/06/20 12/06/20 12/06/20 Range/Units 11:22 12:31 13:43 MCV (84-94) fl MCH (28-32) pg Plt Count (140-440) K/mm3 [place] % (Auto) (0.0-7.3) % [place] # (Auto) (0.0-0.8) K/mm3 INR 1.14 H (0.87-1.13) Sodium (137-145) mmol/L Chloride (98-107) mmol/L Carbon Dioxide (22-30) mmol/L Creatinine (0.8-1.3) mg/dL POC Glucose 57 L 109 H (70-105) mg/dL
[2020-12-06] MEDS ORDERED: WARFARIN 7.5 MG TAB PO SCH (17:00)
[2020-12-06] MEDS: PRAVASTATIN 40 MG TAB PO SCH (21:37)
[2020-12-07] MEDS: INSULIN REGULAR, HUMAN 100 UNITS/1 ML SUB-Q SCH ×2 (04:30→11:27)
[2020-12-07] MEDS: VANCOMYCIN/NS 1 GM/250 ML 1 GM/250 ML BAG IV SCH (05:31)
[2020-12-07 06:09] LABS: Blood Urea Nitrogen 10 mg/dL (9-20); Calcium 8.9 mg/dL (8.4-10.2); Hemolysis Index 6
[2020-12-07 06:11] LABS: BUN/Creatinine Ratio 17
[2020-12-07] MEDS ORDERED: LISINOPRIL 5 MG TAB PO SCH (08:00)
[2020-12-07] MEDS ORDERED: ASPIRIN 81 MG TAB CHEW PO SCH (08:00)
[2020-12-07] MEDS ORDERED: POTASSIUM CHLORIDE ER 20 MEQ TAB PO SCH (10:00)
[2020-12-07] MEDS ORDERED: SCOPOLAMINE TRANSDERMAL PATCH 72 HR TD SCH (10:00)
[2020-12-07] MEDS ORDERED: LANSOPRAZOLE 30 MG SOLUTAB FEEDTUBE SCH (10:00)
--- NOTE | 2020-12-07 10:06 | Discharge Summary ---
Providers - Providers Date of Admission: 12/04/20 14:10 Date of discharge: 12/07/20 Attending physician: WON TURPIN 12/04/20 14:10 Consult to Physician [CONS] Routine Comment: Consulting Provider: ANTELMO SANTOS Physician Instructions: Reason For Exam: G tube malfunction 12/04/20 17:29 Consult to Wound/ET Nurse [CONS] Routine Reason For Exam: wound eval 12/05/20 08:00 Consult to Physician [CONS] Routine Comment: Consulting Provider: DENA SHEPPARD Physician Instructions: Reason For Exam: abd wall cellulitis 12/05/20 13:46 Consult to Physician [CONS] Urgent Comment: Consulting Provider: COLLETTE GUEVARA Physician Instructions: for v-tach Reason For Exam: V-tach 12/06/20 13:19 Consult to Dietitian/Nutrition [CONS] Routine Physician Instructions: Assess nutrtn needs, initiate, modify, manage TF Reason For Exam: Reason for Consult: Write/Manage Tube Feeding Reason for Consult: Write/Manage Tube Feeding Primary care physician: INTERACTIVE PRODUCER Hospitalization Condition: Fair Pertinent studies: 2D echo Procedures: G-tube placement Hospital course: The patient is a 70-year-old male with CVA, diabetes, vascular dementia, shelter resident was brought into the emergency room due to leakage around his gastric tube site. Upon evaluation in the ER, was noted to have cellulitis around the G-tube. GI was consulted and patient's G-tube was replaced. Patient was started on empiric antibiotics per ID recommendation. Patient also noted to have few runs of V. tach on telemetry, consulted cardiology. Patient had 2D echocardiogram which showed EF 30 to 35% with LV apical thrombus. Patient was started on Coumadin and recommended to continue Coumadin to maintain INR 2-3 for at least 3 months. Patient need to follow-up with a repeat TTE in 3 months as outpatient. Patient did not have any sign of decompensated heart failure. Patient initiated on Lopressor and low-dose ACEI. Patient will follow up with Dr. Szymanski in 2 weeks following discharge. Patient noted to be hypernatremic and received hypotonic fluid. Monitored electrolytes and repleted as needed. Patient was then discharged back to shelter in stable condition. Discharge diagnosis: -- SIRS, due to Abdominal wall cellulitis. POA, presented with tachycardia, lactic acidosis and cellulitis --Abdominal wall cellulitis. 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 by GI, --Vascular dementia, continue supportive care --Cerebral atherosclerosis, continue home meds --NSVT , cardiology consulted, continue medical management with BB --hypernatremia, improved with hypotonic fluid --Cardiomyopathy/chronic systolic CHF, compensated --Left ventricular apical thrombus, started on coumadin --h/o CVA, cont aspirin, statin -- Hypokalemia, repleted Disposition: DC/[facility] Time spent for discharge: 34 minutes Core Measure Documentation - Palliative Care Palliative Care/ Comfort Measures: Not Applicable - Core Measures Any of the following diagnoses?: heart failure - Heart Failure Discharge Requirements CHANI/ARB for LVSD if EF <40%: Yes Beta celia at discharge: Yes Exam - Physical Exam Narrative exam: General appearance: Present: mild distress - EENT Eyes: Present: PERRL, EOM intact ENT: hearing intact, clear oral mucosa, dentition normal - Neck Neck: Present: supple, normal ROM - Respiratory Respiratory effort: normal Respiratory: bilateral: CTA - Cardiovascular Rhythm: regular Heart Sounds: Present: S1 & S2. Absent: gallop, rub - Extremities Extremities: no ischemia, No edema, Full ROM - Abdominal General gastrointestinal: soft, non-tender, non-distended, normal bowel sounds - Integumentary Integumentary: Present: clear, warm, dry - Neurologic Neurologic: Nonverbal, left-sided weakness, upper more than lower - Constitutional Vitals: Temp Pulse Resp BP Pulse Ox 98.9 F 60 20 108/63 98 12/07/20 07:00 12/07/20 07:00 12/07/20 07:00 12/07/20 07:00 12/07/20 07:00 Plan Activity: fall precautions Weight Bearing Status: Non-Weight Bearing Diet: other (Tube feeding diet) Wound: keep clean and dry Special Instructions: restrict fluid intake to (1.5 L daily), record daily weights, record daily BP diary, record blood sugar diary Additional Instructions: Follow-up with Dr. Szymanski within 2 weeks of discharge ([phone]). Follow up with: PRIMARY CARE, [Primary Care Provider] - 3-5 Days Forms: Warfarin Discharge Instruction Prescriptions: Warfarin [Coumadin] 5 mg PO DAILY@1700 #14 tablet Aspirin EC [Halfprin EC] 81 mg PO QDAY #30 tablet.
[2020-12-07] MEDS: METOPROLOL TARTRATE 25 MG TAB PO SCH (10:22)
[2020-12-07] MEDS: FLUCONAZOLE 200 MG 200 MG/100 ML BAG IV SCH (10:41)
[2020-12-07] MEDS: cefTRIAXone/NS 1 GM/50 ML 1 GM/50 ML BAG IV SCH (10:41)
[2020-12-07 11:04] LABS: INR 1.43 (0.87-1.13)
[2020-12-07 11:38] VITALS: BP 117/66
[2020-12-07] MEDS ORDERED: WARFARIN 5 MG TAB PO SCH (17:00)
== END 2020-12-07 14:30 | DRG 327 ==
LOC: ED 11:47 → 3A 14:10 → 3B 19:35
PROVIDERS: ADMIT Internal Medicine; ATTEND Internal Medicine
PROC: 0DP63UZ Removal of Feeding Device from Stomach, Percutaneous Approach (ICD-10-PCS; principal; 2020-12-05)
PROC: 0DH63UZ Insertion of Feeding Device into Stomach, Percutaneous Approach (ICD-10-PCS; 2020-12-05)
DX: K94.23 Gastrostomy malfunction (principal); R65.10 Systemic inflammatory response syndrome (SIRS) of non-infectious origin without acute organ dysfunction; I42.9 Cardiomyopathy, unspecified; L03.311 Cellulitis of abdominal wall; I47.2 Ventricular tachycardia; E87.0 Hyperosmolality and hypernatremia; I50.22 Chronic systolic (congestive) heart failure; F01.50 Vascular dementia, unspecified severity, without behavioral disturbance, psychotic disturbance, mood disturbance, and anxiety; Z86.73 Personal history of transient ischemic attack (TIA), and cerebral infarction without residual deficits; Z20.822 Contact with and (suspected) exposure to COVID-19; Z91.013 Allergy to seafood; E11.9 Type 2 diabetes mellitus without complications; Z82.49 Family history of ischemic heart disease and other diseases of the circulatory system; Z83.3 Family history of diabetes mellitus; Z79.4 Long term (current) use of insulin; I67.2 Cerebral atherosclerosis; I51.3 Intracardiac thrombosis, not elsewhere classified; E87.6 Hypokalemia; I11.0 Hypertensive heart disease with heart failure; Y83.3 Surgical operation with formation of external stoma as the cause of abnormal reaction of the patient, or of later complication, without mention of misadventure at the time of the procedure
CPT/HCPCS: 36415; 74176; 80048; 80053; 82140; 82962; 83735; 85025; 85610; 85730; 87040; 93005; 93306; G0378; A9270-GY; C9113; J0696; J1450; J3370; J7030; U0003

== ENCOUNTER 2021-03-15 12:34 | Outpatient (CLI) | payer MEDICARE | END 2021-03-15 12:35 | disposition home or self-care (01) | LOC: ECHO 12:34 | DX: I51.3 Intracardiac thrombosis, not elsewhere classified (principal); I51.89 Other ill-defined heart diseases | CPT/HCPCS: 93306 ==

== ENCOUNTER 2021-12-10 16:25 | Emergency (ER) | payer MEDICARE ==
[2021-12-10] MEDS ORDERED: SODIUM CHLORIDE IRRI 500 ML 500 ML IR ONE (17:20)
--- NOTE | 2021-12-10 18:27 | XRay Report ---
ABDOMEN 1 VIEW INDICATION / CLINICAL INFORMATION: PEG TUBE. COMPARISON: None available. FINDINGS: Percutaneous gastrostomy tube projects over the stomach. Positioning is not further characterized wit hout enteric contrast administration. Bowel gas pattern is nonobstructive. Signer Name: Sean Bettencourt MD Signed: 12/10/2021 6:22 PM Workstation Name: [id number]
[2021-12-10 19:05] VITALS: BP 99/59
--- NOTE | 2021-12-10 21:12 | Emergency Department Report ---
ED General Adult HPI - General Chief complaint: Medical Clearance Stated complaint: G-TUBE REPLACED Time Seen by Provider: 12/10/21 16:48 Source: EMS Mode of arrival: Stretcher Limitations: No Limitations - History of Present Illness Initial comments: SENT BY [facility] FOR A GTUBE REPLACEMENT. NURSE FROM FACILITY REPORTS "ITS BEEN MALFUNCTIONING SINCE THIS MORNING". -: Gradual, hour(s) Location: abdomen Worsens with: none Associated Symptoms: denies other symptoms. denies: confusion, chest pain, cough - Related Data Home Medications Medication Instructions Recorded Confirmed Last Taken Insulin Regular, Human 1 units SQ PRN PRN 06/21/15 06/21/15 06/20/15 Omeprazole 20 mg PO DAILY 06/21/15 06/21/15 06/20/15 Scopolamine 1.5 mg SUBDERMAL Q72HR 06/21/15 06/21/15 06/20/15 glipiZIDE [Glucotrol] 5 mg PO BIDDIAB 06/21/15 06/21/15 06/20/15 Previous Rx's Medication Instructions Recorded Last Taken Type Simvastatin (Nf) [Zocor TAB] 20 mg PO QHS #30 tablet 09/22/14 Unknown Rx Aspirin EC [Halfprin EC] 81 mg PO QDAY #30 tablet. 12/07/20 Unknown Rx Metoprolol [Lopressor TAB] 25 mg PO BID tablet 12/07/20 Unknown Rx Warfarin [Coumadin] 5 mg PO DAILY@1700 #14 tablet 12/07/20 Unknown Rx lisinopriL [Zestril TAB] 5 mg PO QDAY tablet 12/07/20 Unknown Rx Allergies Allergy/AdvReac Type Severity Reaction Status Date / Time shellfish derived AdvReac Unknown Verified 12/10/21 16:31 ED Review of Systems ROS: Stated complaint: G-TUBE REPLACED Other details as noted in HPI Constitutional: denies: chills, fever Eyes: denies: eye pain, eye discharge, vision change ENT: denies: ear pain, throat pain Respiratory: denies: cough, shortness of breath, wheezing Cardiovascular: denies: chest pain, palpitations Endocrine: no symptoms reported Gastrointestinal: denies: abdominal pain, nausea, diarrhea Genitourinary: denies: urgency, dysuria Musculoskeletal: denies: back pain, joint swelling, arthralgia Skin: denies: rash, lesions Neurological: denies: headache, weakness, paresthesias Psychiatric: denies: anxiety, depression Hematological/Lymphatic: denies: easy bleeding, easy bruising ED Past Medical Hx - Past Medical History Hx Hypertension: Yes Hx CVA: Yes Hx Diabetes: Yes Hx Liver Disease: No Hx Renal Disease: No Hx Sickle Cell Disease: No Hx Arthritis: No Hx Headaches / Migraines: No Hx Seizures: No Hx Kidney Stones: No Hx Asthma: No Hx COPD: No Hx Dementia: Yes Hx HIV: No Additional medical history: Unable to obtain all medical history - Surgical History Hx Coronary Stent: No Hx Open Heart Surgery: No Hx Pacemaker: No Hx Cholecystectomy: No Hx Appendectomy: No Additional Surgical History: Abd Surgery - Social History Smoking Status: Unknown if ever smoked - Medications Home Medications: Home Medications Medication Instructions Recorded Confirmed Last Taken Type Simvastatin (Nf) [Zocor TAB] 20 mg PO QHS #30 tablet 09/22/14 06/21/15 Unknown Rx Insulin Regular, Human 1 units SQ PRN PRN 06/21/15 06/21/15 06/20/15 History Omeprazole 20 mg PO DAILY 06/21/15 06/21/15 06/20/15 History Scopolamine 1.5 mg SUBDERMAL Q72HR 06/21/15 06/21/15 06/20/15 History glipiZIDE [Glucotrol] 5 mg PO BIDDIAB 06/21/15 06/21/15 06/20/15 History Aspirin EC [Halfprin EC] 81 mg PO QDAY #30 tablet. 12/07/20 Unknown Rx Metoprolol [Lopressor TAB] 25 mg PO BID tablet 12/07/20 Unknown Rx Warfarin [Coumadin] 5 mg PO DAILY@1700 #14 tablet 12/07/20 Unknown Rx lisinopriL [Zestril TAB] 5 mg PO QDAY tablet 12/07/20 Unknown Rx ED Physical Exam - General Limitations: No Limitations General appearance: alert, in no apparent distress - Head Head exam: Present: atraumatic, normocephalic - Eye Eye exam: Present: normal appearance - ENT ENT exam: Present: mucous membranes moist - Neck Neck exam: Present: normal inspection - Respiratory Respiratory exam: Present: normal lung sounds bilaterally. Absent: respiratory distress - Cardiovascular Cardiovascular Exam: Present: regular rate, normal rhythm. Absent: systolic murmur, diastolic murmur, rubs, gallop - GI/Abdominal GI/Abdominal exam: Present: soft, normal bowel sounds - Rectal Rectal exam: Present: deferred - Extremities Exam Extremities exam: Present: normal inspection - Back Exam Back exam: Present: normal inspection - Neurological Exam Neurological exam: Present: alert, oriented X3 - Psychiatric Psychiatric exam: Present: normal affect, normal mood - Skin Skin exam: Present: warm, dry, intact, normal color. Absent: rash ED Course Vital Signs 12/10/21 12/10/21 16:26 19:04 Temperature 98.9 F Pulse Rate 72 63 Respiratory 20 18 Rate Blood Pressure 103/68 99/59 [Left] O2 Sat by Pulse 99 94 Oximetry - Procedure Description Procedures done: peg tube replacement. size 18 F. placed. positive aspiration Critical care attestation.: If time is entered above; I have spent that time in minutes in the direct care of this critically ill patient, excluding procedure time. ED Disposition Clinical Impression: PEG tube malfunction Disposition: HOME / SELF CARE / HOMELESS Is pt being admited?: No Does the pt Need Aspirin: No Condition: Stable Instructions: PEG Tube Home Guide, [id number], How to Care for a Feeding Tube Referrals: PRIMARY CARE, [Primary Care Provider] - 3-5 Days
== END 2021-12-10 19:13 | disposition home or self-care (01) ==
LOC: ED 16:25
DX: K94.23 Gastrostomy malfunction (principal); I10 Essential (primary) hypertension; Z91.013 Allergy to seafood; E11.9 Type 2 diabetes mellitus without complications
CPT/HCPCS: 74018; 82962; 99283